=== PATIENT | female | born 1970 | race Caucasian/White ===

== ENCOUNTER 2016-08-17 07:56 | Emergency (ER) | payer OTHER ==
[2016-08-17 08:06] VITALS: TEMP 98.1
--- NOTE | 2016-08-17 08:09 | EDPHY ---
HPI/HX/ROS/PE/MDM Narrative: CHIEF COMPLAINT: Right periorbital pain and swelling. HPI: The patient is a 46-year-old female who complains of right periorbital pain after a mechanical fall last night. The patient woke around 2am to go downstairs and tripped down the stairs. Her partner believes she hit her head on the dresser at the bottom of the stairs. The patient applied ice and went back to bed. This morning she woke up with a significant amount of swelling around the right eye as well as pain to the right forehead. No other recent falls. Patient is otherwise healthy. REVIEW OF SYSTEMS: Aside from elements discussed in the HPI, a comprehensive 10-point review of systems was reviewed and is negative. PMH: Denies. SOCIAL HISTORY: Partner at bedside. PHYSICAL EXAM: General: Patient is alert, in no acute distress. Head: Abrasion and tenderness to right forehead. Eyes: Large periorbital hematoma cant visualize eye underneath. Ears: No hemotympanum. Neck: Normal inspection. Full range of motion. Respiratory: No respiratory distress. Breath sounds normal bilaterally. Cardiovascular: Regular rate and rhythm. Strong peripheral pulses. Abdomen: The abdomen is nontender to palpation. There are no peritoneal signs. There are normal bowel sounds. Back: Normal to inspection. No tenderness to palpation. Skin: Normal color. No rash. Warm and dry. Extremities: Normal appearance. Full range of motion. Neuro: Oriented x3. Normal motor function. Normal sensory function. ED Course: Plan for CT head and cervical spine. CT head is negative for fracture or bleed. CT cervical spine is negative for fracture. 0915: I spoke to Dr. Her, Ophthalmology, he will see the patient in his clinic today. MDM: This patient presents with large periorbital hematoma. I am unable to examine her eye. The patient does not have significant pain and there are no signs of retrorbital bleeding on CT, so I do not think she has indication for lateral canthotomy or emergent ophthalmology. The patient will see optho later today for eval. I see no signs of other serious traumatic injury. - Data Points Imaging Results: Imaging Impressions Cervical Spine CT 08/17/16 08:14 Impression: 1 Right periorbital soft tissue swelling. 2. Small amount of upper intraorbital gas of uncertain etiology. 3. Negative brain. 2. CT Cervical Spine Without Contrast, 8:33 AM History: Trauma. Fall last night. Neck pain. Technique: Multislice helical CT through the cervical spine without contrast from the skull base to T1. Soft tissue and bone evaluation is performed. Sagittal and coronal reconstructions are obtained and reviewed. Dose reduction techniques were utilized. Findings: Cervical alignment is anatomic. The spine is tilted toward the patient 's left. No fracture or dislocation is identified. The relationship between skull base and C1 is normal. The C1-C2 articulation is normally aligned, but associated with mild osteoarthritic change. The odontoid process is intact. Disk spaces maintain their normal height . Facet joints are normally aligned. The cervical thoracic junction is normally aligned. Soft tissue window evaluation does not show evidence of epidural or prevertebral hematoma. Impression: No acute posttraumatic abnormality identified. Final concordant results called to Dr. Stanley in at 9:00 AM. Final results are concordant with the initial interpretation. General information for patients regarding this examination can be found at [facility]. If you have questions or comments about this report, please contact me at (hospital) or [phone] (cell). Head CT 08/17/16 08:14 Impression: 1 Right periorbital soft tissue swelling. 2. Small amount of upper intraorbital gas of uncertain etiology. 3. Negative brain. 2. CT Cervical Spine Without Contrast, 8:33 AM History: Trauma. Fall last night. Neck pain. Technique: Multislice helical CT through the cervical spine without contrast from the skull base to T1. Soft tissue and bone evaluation is performed. Sagittal and coronal reconstructions are obtained and reviewed. Dose reduction techniques were utilized. Findings: Cervical alignment is anatomic. The spine is tilted toward the patient 's left. No fracture or dislocation is identified. The relationship between skull base and C1 is normal. The C1-C2 articulation is normally aligned, but associated with mild osteoarthritic change. The odontoid process is intact. Disk spaces maintain their normal height . Facet joints are normally aligned. The cervical thoracic junction is normally aligned. Soft tissue window evaluation does not show evidence of epidural or prevertebral hematoma. Impression: No acute posttraumatic abnormality identified. Final concordant results called to Dr. Stanley in at 9:00 AM. Final results are concordant with the initial interpretation. General information for patients regarding this examination can be found at [facility]. If you have questions or comments about this report, please contact me at [phone] (hospital) or [phone] (cell). Imaging: Discussed imaging studies w/ bingo caller Radiologist Medications Given: Discontinued Medications Ondansetron HCl (Zofran Odt) 4 mg PO EDNOW ONE Stop: 08/17/16 08:25 Last Admin: 08/17/16 08:25 Dose: 4 mg Ondansetron HCl (Zofran) 4 mg IVP EDNOW ONE Stop: 08/17/16 08:43 Last Admin: 08/17/16 08:48 Dose: 4 mg General Initial Vital Signs: Initial Vital Signs Temperature (C) 36.7 C 08/17/16 08:01 Heart Rate 89 08/17/16 08:01 Respiratory Rate 18 08/17/16 08:01 Blood Pressure 127/86 H 08/17/16 08:01 O2 Sat (%) 95 08/17/16 08:01 O2 Delivery Mode Room Air Allergies/Adverse Reactions: No Known Allergies Allergy (Unverified 08/17/16 08:01) Home Medications: Medication Instructions Recorded Hydrocodone/APAP 5/325 [Dalton 1 - 2 tab PO Q4H PRN #7 tab 08/17/16 5/325 (RX)] Ondansetron Odt [Zofran Odt] 4 mg PO Q4PRN PRN #10 tab 08/17/16 Departure - Departure Disposition: Home, Routine, Self-Care Clinical Impression: Periorbital hematoma of right eye Condition: Good Instructions: Hematoma (ED), Facial Contusion (ED) Additional Instructions: 1. Please see Dr. Her, Ophthalmology, today in his clinic. 2. Apply ice the eye to help improve swelling. 3. Adult Pain Control: We recommend Acetaminophen (Tylenol) and Ibuprofen (Motrin,Advil) for pain control. When pain is severe, both drugs can be used at the same time, but at different intervals. Please note the time differences. Your dose is: Acetaminophen 650mg every 4 to 6 hours Ibuprofen 600mg every 6 to 8 hours with food. Note: do not take Acetaminophen with Hydrocodone (Vicodin, Lortab) or Oycodone (Percocet). These medications also contain Acetaminophen. No more than 3000mg of Acetaminophen should be taken in 24 hours (for an adult). 4 Take Zofran as directed for nausea. 5. You have been referred to a primary care physician below. Please followup as necessary. Referrals: Clarita Renee MD [Medical Doctor] - As per Instructions (Primary Care Physician) Kip Her MD [Medical Doctor] - As per Instructions (Ophthalmology) Prescriptions: Hydrocodone/APAP 5/325 [Dalton 5/325 (RX)] 1 - 2 tab PO Q4H PRN #7 tab PRN Reason: Pain, Moderate Ondansetron Odt [Zofran Odt] 4 mg PO Q4PRN PRN #10 tab PRN Reason: Nausea Report Scribed for: Anjel Stanley Report Scribed by: Selam Solares Date of Report: 08/17/16 Time of Report: 08:09 Physician Review and Approval Statement: Portions of this note were transcribed by a medical practitioners. I personally performed a history, physical exam, medical decision making, and confirmed accuracy of information the transcribed note.
[2016-08-17] MEDS ORDERED: ONDANSETRON DISINTEGRATING 4 MG TAB ONE (08:23)
[2016-08-17] MEDS ORDERED: ONDANSETRON DISINTEGRATING 4 MG TAB PO ONE (08:24)
[2016-08-17] MEDS ORDERED: ONDANSETRON 4 MG/2 ML VIAL IVP ONE (08:42)
[2016-08-17 09:44] VITALS: BP 117/66; PULSE 74; RESP 16; O2SAT 93
== END 2016-08-17 09:54 | disposition home or self-care (01) ==
DX: S00.11XA Contusion of right eyelid and periocular area, initial encounter (principal); W01.198A Fall on same level from slipping, tripping and stumbling with subsequent striking against other object, initial encounter; Y99.8 Other external cause status; Y93.89 Activity, other specified
CPT/HCPCS: 96374; J2405